=== PATIENT | male | born 1975 | race Caucasian/White ===

== ENCOUNTER 2016-12-16 21:57 | Emergency (ER) | payer OTHER ==
--- NOTE | ~2016-12-16 | ER ---
PATIENT'S NAME: [facility] AGE: 41 Y [address] ROOM: [place] [id number] LOCATION: [facility] ADMIT DATE: 12/16/2016 ER/Outpatient Report DISCHARGE DATE: 12/16/2016 FAMILY PHYSICIAN: PHYSICIAN, NO ATTENDING PHYSICIAN: Jasvir Little TIME OF ARRIVAL: 2157 hours. TIME OF EXAM: 2157 hours. CHIEF COMPLAINT: Laceration. 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 States he cleansed it well with water and wrapped it up. Denies any other injury. Denies any numbness or tingling to his fingers. ALLERGIES: PENICILLIN. CURRENT MEDICATIONS: None. PAST MEDICAL HISTORY: Negative. PAST SURGICAL HISTORY: Negative. REVIEW OF SYSTEMS: All negative other than those mentioned in the HPI. IMMUNIZATIONS: Tetanus status states he is unsure when he last had one. PHYSICAL EXAMINATION: VITAL SIGNS: Weight 146.1 kg. Blood pressure is 217/128, pulse of 81, respirations 16, temp of 98.4, and O2 sat is 95% on room air. GENERAL: He is awake, alert, and oriented x4. SKIN: [place], warm, and dry. PATIENT'S NAME: [facility]ILLE [facility] AGE: 41 Y [address] ROOM: [place] [address] LOCATION: [facility] ADMIT DATE: 12/16/2016 ER/Outpatient Report DISCHARGE DATE: 12/16/2016 FAMILY PHYSICIAN: PHYSICIAN, JASSON ATTENDING PHYSICIAN: Jasvir Little RESPIRATIONS: Even and nonlabored. Lung sounds are clear throughout. HEART: Regular rate and rhythm. EXTREMITIES: The patient has an open laceration of the right upper forearm that is approximately 1.5 cm long. The laceration and abrased area equals 4.5 cm long. EMERGENCY ROOM COURSE: Area was cleansed with saline and Betadine and anesthetized with 1% lidocaine with epinephrine and closed with 4-0 Ethilon x3 stitches. The patient tolerated the procedure well. Tetanus was updated with a Tdap. Band-Aid was applied to the lacerated area. The patient tolerated very well. IMPRESSION: Laceration on the right forearm. PLAN: Home, rest, keep it clean and dry. Suture removal in 7-10 days. See his primary provider for symptoms of infection in the next 2 or 3 days. The patient verbalized understanding. WARREN BOB APRN FOR DO EDWINA MANSFIELD/stephanie /[id number] d: 12/17/168 t: 12/22/16 1321, OUTPATIENT REPORT
== END 2016-12-16 22:30 | disposition disaster alternative care site (69) ==
LOC: GACC 21:57
PROC: 0HQDXZZ Repair Right Lower Arm Skin, External Approach (ICD-10-PCS; principal; 2016-12-16)
DX: S51.811A Laceration without foreign body of right forearm, initial encounter (principal); Z23 Encounter for immunization; Z88.0 Allergy status to penicillin; W45.8XXA Other foreign body or object entering through skin, initial encounter